=== PATIENT | female | born 1960 | race Caucasian/White ===

== ENCOUNTER → 2017-06-11 | Outpatient (CLI) | payer BC, OTHER ==
[~2017-06-11] MED LIST: AMLO10TA4; AMOX1TAB64; LISI-170
== END | disposition home or self-care (01) ==
LOC: CFH 07:28
PROVIDERS: ATTEND Physical Medicine & Rehabilitation Pain Medicine
DX: M51.26 Other intervertebral disc displacement, lumbar region (principal); M51.27 Other intervertebral disc displacement, lumbosacral region; M51.25 Other intervertebral disc displacement, thoracolumbar region; M48.07 Spinal stenosis, lumbosacral region; M79.605 Pain in left leg; M79.604 Pain in right leg
CPT/HCPCS: 72148

== ENCOUNTER → 2017-10-01 | Outpatient (CLI) | payer OTHER | END | disposition home or self-care (01) | LOC: CFH 16:18 | PROVIDERS: ATTEND Orthopaedic Surgery | DX: M25.552 Pain in left hip (principal) | CPT/HCPCS: 73523 ==

== ENCOUNTER 2017-12-27 04:48 | Emergency (ER) | payer OTHER ==
[~2017-12-27] VITALS: Ht 167.6 cm; Wt 119.1 kg
[2017-12-27] MEDS ORDERED: hydrOXYzine 25 MG/ML IM ONE (05:30)
[2017-12-27 05:43] LABS: BASOPHILS % (AUTO) 0 % (0-1); EOSINOPHILS # (AUTO) 0.25 x10^3/uL (0-0.4); EOSINOPHILS % (AUTO) 4 % (1-7); LYMPHOCYTES # (AUTO) 1.25 x10^3/uL (1-3.4); LYMPHOCYTES % (AUTO) 20 % (22-44); MD NO; MEAN CORPUSCULAR HEMOGLOBIN 19.8 pg (27.0-34.8); MEAN CORPUSCULAR HGB CONC 32.1 g/dL (32.4-35.8); MEAN CORPUSCULAR VOLUME 61.6 fL (80-100); MEAN PLATELET VOLUME 9.3 fL (7.4-10.4); MONOCYTES # (AUTO) 0.54 x10^3/uL (0.2-0.8); MONOCYTES % (AUTO) 9 % (2-9); NEUTROPHILS # (AUTO) 4.22 x10^3/uL (1.8-6.8); NEUTROPHILS % (AUTO) 67 % (42-75); PLATELET COUNT 167 x10^3/uL (130-400); RED BLOOD COUNT 5.19 x10^6/uL (3.82-5.3); RED CELL DISTRIBUTION WIDTH 14.5 % (9.6-15.2)
[2017-12-27 05:59] LABS: ALBUMIN 4.1 g/dL (3.4-5.0); ANION GAP 7 mmol/L (5-15); CALCIUM 8.8 mg/dL (8.5-10.1); CHLORIDE 104 mmol/L (98-107); CREATININE 0.95 mg/dL (0.55-1.02)
[2017-12-27] MEDS ORDERED: HYDROXYZINE PAMOATE 25MG CAP PO ONE (06:00)
[2017-12-27 06:03] LABS: TROPONIN I < 0.015 ng/mL (0.000-0.045)
[2017-12-27 06:09] VITALS: BP 148/87
== END 2017-12-27 06:33 | disposition home or self-care (01) ==
LOC: ED 06:31
DX: R06.00 Dyspnea, unspecified (principal); F41.1 Generalized anxiety disorder; J44.9 Chronic obstructive pulmonary disease, unspecified; G89.29 Other chronic pain; I10 Essential (primary) hypertension
CPT/HCPCS: 36415; 71045; 80048; 82040; 84484; 85025; 93005; 99285

== ENCOUNTER 2017-12-27 13:04 | Emergency (ER) | payer OTHER ==
[~2017-12-27] VITALS: Ht 167.6 cm; Wt 98.2 kg
[2017-12-27 15:18] VITALS: BP 150/89
[2017-12-27] MEDS ORDERED: ALBUTEROL SULFATE 2.5 MG/3 ML NPPB ONE (15:30)
[2017-12-27] MEDS ORDERED: ALBUTEROL SULFATE 2.5 MG/3 ML ONE (15:32)
== END 2017-12-27 17:19 | disposition home or self-care (01) ==
LOC: ED 16:25
DX: J44.1 Chronic obstructive pulmonary disease with (acute) exacerbation (principal); F17.200 Nicotine dependence, unspecified, uncomplicated; I10 Essential (primary) hypertension; F41.9 Anxiety disorder, unspecified
CPT/HCPCS: 94640; 99283; J7613

== ENCOUNTER 2018-10-12 11:25 | Emergency (ER) | payer OTHER ==
[~2018-10-12] VITALS: Ht 165.1 cm; Wt 123.6 kg
--- NOTE | 2018-10-12 11:38 | NUR ---
PATIENT REFUSING EKG IN TRIAGE AND MELY RIOS NOTIFIED.
[2018-10-12] MEDS ORDERED: ALBUTEROL/IPRATROPIUM 2.5MG/0.5MG, 3 ML NPPB ONE (12:00)
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
[2018-10-12] MEDS ORDERED: BUDE10.22 INH (14:06)
[2018-10-12] MEDS ORDERED: METH500T97 PO (14:06)
[2018-10-12] MEDS ORDERED: CITA40TA5 PO (14:06)
[2018-10-12] MEDS ORDERED: ALBU8.5H8 INH (14:06)
[2018-10-12] MEDS ORDERED: OXYC10TA6 PO (14:06)
[2018-10-12] MEDS ORDERED: LORazepam 1MG TABLET ONE (14:12)
[2018-10-12] MEDS ORDERED: LORazepam 1MG TABLET PO ONE (15:00)
[2018-10-12] MEDS ORDERED: ALBUTEROL/IPRATROPIUM 2.5MG/0.5MG, 3 ML ONE (15:31)
--- NOTE | 2018-10-12 15:42 | NUR ---
RT at bedside. NADN. No needs requested at this time.
[2018-10-12 16:42] VITALS: BP 141/65
--- NOTE | 2018-10-12 16:42 | NUR ---
Patient given discharge instructions and they have confirmed that they understand the instructions. Patient ambulatory with steady gait. Pt left with all personal belongings, prescription, and discharge paperwork.
== END 2018-10-12 16:45 | disposition home or self-care (01) ==
LOC: ED 15:19
DX: J44.1 Chronic obstructive pulmonary disease with (acute) exacerbation (principal); F41.1 Generalized anxiety disorder; I10 Essential (primary) hypertension
CPT/HCPCS: 71046; 93005; 94640; 99283; J7620

== ENCOUNTER 2018-10-24 13:44 | Emergency (ER) | payer OTHER ==
[~2018-10-24] VITALS: Ht 165.1 cm; Wt 121.7 kg
[~2018-10-24 13:44] MED LIST changes: +ALBU8.5H8 INH; +BUDE10.22 INH; +CITA40TA5 PO; +METH500T97 PO; +OXYC10TA6 PO
--- NOTE | 2018-10-24 14:05 | NUR ---
Assumed care of patient. C/O anxiety and SOB, but admits she has SOB at baseline d/t COPD. Patient reports starting new antidepressant a few days ago, but denies taking any PRN meds for anxiety. Placed on NIBP and pulse ox. Will continue to monitor.
--- NOTE | 2018-10-24 14:16 | NUR ---
LUNCH RN: AWAITING PROVIDER TO SEE AT THIS TIME.
--- NOTE | 2018-10-24 14:22 | NUR ---
LUNCH RN: PROVIDER TO BEDSIDE.
[2018-10-24] MEDS ORDERED: LORazepam 1MG TABLET PO ONE (14:30)
[2018-10-24 14:40] LABS: BASOPHILS # (AUTO) 0.02 x10^3/uL (0-0.1); BASOPHILS % (AUTO) 0 % (0-1); EOSINOPHILS # (AUTO) 0.17 x10^3/uL (0-0.4); EOSINOPHILS % (AUTO) 2 % (1-7); LYMPHOCYTES # (AUTO) 1.46 x10^3/uL (1-3.4); LYMPHOCYTES % (AUTO) 17 % (22-44); MD NO; MEAN CORPUSCULAR HEMOGLOBIN 19.4 pg (27.0-34.8); MEAN CORPUSCULAR HGB CONC 31.6 g/dL (32.4-35.8); MEAN CORPUSCULAR VOLUME 61.3 fL (80-100); MEAN PLATELET VOLUME 8.7 fL (7.4-10.4); MONOCYTES # (AUTO) 0.67 x10^3/uL (0.2-0.8); MONOCYTES % (AUTO) 8 % (2-9); NEUTROPHILS # (AUTO) 6.13 x10^3/uL (1.8-6.8); NEUTROPHILS % (AUTO) 73 % (42-75); PLATELET COUNT 212 x10^3/uL (130-400); RED BLOOD COUNT 5.74 x10^6/uL (3.82-5.3)
[2018-10-24 14:52] LABS: ALBUMIN 3.9 g/dL (3.4-5.0); ANION GAP 5 mmol/L (5-15); CALCIUM 8.6 mg/dL (8.5-10.1); CHLORIDE 104 mmol/L (98-107)
[2018-10-24 14:54] LABS: INTERNATIONAL NORMALIZED RATIO 0.99 (0.93-1.1); PROTHROMBIN TIME 10.5 Seconds (9.6-11.5)
[2018-10-24 14:57] LABS: ALANINE AMINOTRANSFERASE 59 U/L (12-78); ALKALINE PHOSPHATASE 81 U/L (45-117); BILIRUBIN,TOTAL 1.2 mg/dL (0.2-1.0); CREATININE 0.95 mg/dL (0.55-1.02); TOTAL PROTEIN 7.6 g/dL (6.4-8.2); TROPONIN I < 0.015 ng/mL (0.000-0.045)
[2018-10-24] MEDS ORDERED: LORazepam 1MG TABLET ONE (15:14)
[2018-10-24 15:25] VITALS: BP 149/84
--- NOTE | 2018-10-24 15:25 | NUR ---
Ativan admin. No other needs. VSS.
--- NOTE | 2018-10-24 15:35 | NUR ---
Patient/Caregiver given discharge instructions and they have confirmed that they understand the instructions. Patient ambulatory with steady gait.
== END 2018-10-24 15:36 | disposition home or self-care (01) ==
LOC: ED 14:40
DX: F41.1 Generalized anxiety disorder (principal); J44.9 Chronic obstructive pulmonary disease, unspecified
CPT/HCPCS: 36415; 71045; 80053; 84484; 85025; 85610; 85730; 93005; 99284

== ENCOUNTER 2018-11-02 06:27 | Emergency (ER) | payer OTHER ==
[~2018-11-02] VITALS: Ht 165.1 cm; Wt 124.5 kg
[2018-11-02 06:30] VITALS: BP 146/87
--- NOTE | 2018-11-02 06:42 | NUR ---
PT PRESENTED WITH C/O ANXIETY SINCE 2299 LAST NIGHT, SEEN RECENTLY FOR SAME. FAMILTY AT BEDSIDE, SIDERAILS UP X2, CALL LIGHT WITHIN REACH. AWAITING ERP FOR EVAL AND ORDERS
[2018-11-02] MEDS ORDERED: HYDR1POW19 PO (06:46)
[2018-11-02] MEDS ORDERED: SERT50TA28 PO (06:46)
[2018-11-02] MEDS ORDERED: LORazepam 1MG TABLET ONE (06:48)
[2018-11-02] MEDS ORDERED: LORazepam 1MG TABLET PO ONE (07:00)
== END 2018-11-02 06:58 | disposition home or self-care (01) ==
LOC: ED 06:48
DX: F41.9 Anxiety disorder, unspecified (principal); J44.9 Chronic obstructive pulmonary disease, unspecified; F41.1 Generalized anxiety disorder; I10 Essential (primary) hypertension
CPT/HCPCS: 99284

== ENCOUNTER 2019-08-24 16:35 | Emergency (ER) | payer OTHER ==
[~2019-08-24] VITALS: Ht 165.1 cm; Wt 124.0 kg
[~2019-08-24 16:35] MED LIST changes: +HYDR1POW19 PO; +SERT50TA28 PO
--- NOTE | 2019-08-24 17:22 | NUR ---
BINDER STRIPPER HAND: PT TO ROOM FROM [facility]
[2019-08-24 18:03] VITALS: BP 144/93
[2019-08-24] MEDS ORDERED: CITA40TA5 PO (18:03)
[2019-08-24] MEDS ORDERED: HYDR12.517 PO (18:03)
[2019-08-24] MEDS ORDERED: LISI-170 PO (18:03)
[2019-08-24] MEDS ORDERED: BUSP5TAB2 PO (18:03)
[2019-08-24] MEDS ORDERED: KETOROLAC 30 MG/1 ML IM ONE (18:30)
[2019-08-24] MEDS ORDERED: DIAZEPAM 5 MG TABLET PO ONE ×2 (18:30)
[2019-08-24] MEDS ORDERED: KETOROLAC 60 MG/2 ML ONE (18:34)
[2019-08-24] MEDS ORDERED: DIAZEPAM 5 MG TABLET ONE (18:34)
--- NOTE | 2019-08-24 18:46 | NUR ---
TASK RN COVERING MEAL BREAK. MEDS GIVEN PER ERP ORDER FOR MUSCLE SPASMS AND BACK PAIN. VSS AT THIS TIME. FAMILY AT BS, CALL LIGHT WITHIN REACH.
[2019-08-24 18:53] LABS: ALBUMIN 4.4 g/dL (3.4-5.0); ANION GAP 6 mmol/L (5-15); CALCIUM 8.9 mg/dL (8.5-10.1); CHLORIDE 101 mmol/L (98-107)
[2019-08-24 18:57] LABS: ALANINE AMINOTRANSFERASE 73 U/L (12-78); ALKALINE PHOSPHATASE 92 U/L (45-117); BILIRUBIN,TOTAL 1.1 mg/dL (0.2-1.0); CREATININE 1.28 mg/dL (0.55-1.02); TOTAL PROTEIN 8.7 g/dL (6.4-8.2)
== END 2019-08-24 19:45 | disposition home or self-care (01) ==
LOC: ED 19:08
DX: M62.838 Other muscle spasm (principal); G89.29 Other chronic pain; F17.200 Nicotine dependence, unspecified, uncomplicated; J44.9 Chronic obstructive pulmonary disease, unspecified; I10 Essential (primary) hypertension
CPT/HCPCS: 36415; 80053; 96372; 99283; J1885

== ENCOUNTER → 2020-07-16 | Outpatient (CLI) | payer MEDICAID, OTHER ==
[~2020-07-16] MED LIST changes: +BUSP5TAB2 PO; +HYDR12.517 PO; +LISI-170 PO
== END | disposition home or self-care (01) ==
LOC: CFH 10:43
PROVIDERS: ATTEND Nurse Practitioner Family
DX: Z12.2 Encounter for screening for malignant neoplasm of respiratory organs (principal); I25.10 Atherosclerotic heart disease of native coronary artery without angina pectoris; I70.0 Atherosclerosis of aorta; M51.34 Other intervertebral disc degeneration, thoracic region; Z87.891 Personal history of nicotine dependence
CPT/HCPCS: G0297

== ENCOUNTER → 2020-09-13 | Outpatient (CLI) | payer MEDICAID ==
[~2020-09-13] MED LIST changes: +REGADENOSON 0.4 MG/5 ML SYRINGE ONE
== END | disposition home or self-care (01) ==
LOC: CFH 08:50
PROVIDERS: ATTEND Internal Medicine Cardiovascular Disease
DX: I10 Essential (primary) hypertension (principal); I48.91 Unspecified atrial fibrillation; I71.2 Thoracic aortic aneurysm, without rupture
CPT/HCPCS: 78452; 93017; A9502; J2785

== ENCOUNTER → 2020-10-01 | Outpatient (CLI) | payer MEDICAID ==
[~2020-10-01] MED LIST changes: -REGADENOSON 0.4 MG/5 ML SYRINGE ONE
== END | disposition home or self-care (01) ==
LOC: CVU 07:53
PROVIDERS: ATTEND Internal Medicine Cardiovascular Disease
DX: I08.0 Rheumatic disorders of both mitral and aortic valves (principal); I11.9 Hypertensive heart disease without heart failure; R06.02 Shortness of breath; I71.2 Thoracic aortic aneurysm, without rupture
CPT/HCPCS: 93306; 93356